=== PATIENT | male | born 1990 | race Caucasian/White ===

== ENCOUNTER 2018-03-15 00:56 | Emergency (ER) | payer OTHER, SELFPAY ==
[2018-03-15 01:07] VITALS: BP 120/60; PULSE 72; RESP 16; TEMP 36.8; O2SAT 100; BMI 26.6
--- NOTE | 2018-03-15 01:54 | ED_ITS ---
HPI - Extremity Problem General Chief complaint: Extremity Problem,Nontraumatic Stated complaint: left second toe swelling, feels on fire Time Seen by Provider: 03/15/18 01:12 Source: patient Mode of arrival: ambulatory Limitations: no limitations History of Present Illness HPI Narrative: 27-year-old otherwise healthy male here for evaluation of left 2nd toe pain. Patient states that he has been painful for the past 5 days. He states that he was in [place] and potentially stepped on something while he was walking through the grass but does not know this for sure. States he is in here this evening because he thought that he has toe was becoming more ?swollen ? and was ?on fire ? Related Data Previous Rx's Medication Instructions Recorded cephalexin [Keflex] 500 mg PO Q12H 7 Days #14 cap 03/15/18 Allergies Allergy/AdvReac Type Severity Reaction Status Date / Time Penicillins [PENICILLINS] Allergy Unknown Unverified 01/23/18 12:43 Review of Systems Constitutional Denies chills, Denies fever(s), Denies lethargy and Denies weakness Musculoskeletal Comments: Left 2nd toe pain Integumentary/Breasts Comments: White area on the bottom of his left 2nd toe Neurologic Denies weakness Comments: No numbness and tingling left ft Hematologic/Lymphatic Denies easy bruising Exam Initial Vital Signs Initial Vital Signs: Vital Signs Temperature 98.2 F 03/15/18 01:07 Pulse Rate 72 03/15/18 01:07 Respiratory Rate 16 03/15/18 01:07 Blood Pressure 120/60 03/15/18 01:07 Pulse Oximetry 100 03/15/18 01:07 Const General: cooperative and well developed Nutritional Appearance: well nourished Orientation: alert, awake, oriented x3 and not confused Cardio Pulses: dorsalis pedis present on the left Other: Capillary refill less than 2 sec left foot Skin Other: Patient with some redness around his left 2nd toe and has a half a cm small white area on the bottom of his 2nd toe under the PIP joint Neuro Other: Sensation intact to light touch left foot Extrem Other: Left ankle unremarkable Left foot unremarkable Does have slight swelling to the left 2nd toe Procedures Abscess I/D Site: foot Side (if applicable): left Sedation/analgesia: none Local Anesthetic: lidocaine 1% Amount of anesthesia used (mL): 2 Amount of fluid expressed (mL): 0 Packing used?: none Course Orders Ordered: Discontinued Medications Cephalexin HCl (Keflex) 500 mg PO NOW ONE Stop: 03/15/18 01:53 Vital Signs - 8 hr 03/15/18 01:07 Temperature 98.2 F Pulse Rate 72 Respiratory Rate 16 Blood Pressure 120/60 Pulse Oximetry 100 MDM - Extremity (Nontraumatic) [facility] Narrative Medical decision making narrative: Patient with swelling and a very small area of white material under his left 2nd toe. After the area was numbed a small incision was made with only very small amount of material returned. No foreign body was found. Patient was given care instructions. Will send home on Keflex. He is given return precautions. He expressed understanding and agreement with plan Discharge Plan Departure Patient Disposition: Home, Self-Care Clinical Impression: Infection of toe Activity Restrictions/Additional Instructions: Keep a bandage over the toe. You have no restrictions. He can shower like normal but do not soak her foot and anything. Take the antibiotics as directed. Return to the emergency department for any new or worsening symptoms Prescriptions: New cephalexin [Keflex] 500 mg capsule 500 mg PO Q12H 7 Days Qty: 14 RF: 0
[2018-03-15] MEDS: cephALEXin 250 MG CAPSULE 500 MG PO (02:17)
[2018-03-15 02:29] VITALS: BP 122/70; PULSE 68; RESP 18; O2SAT 100
== END 2018-03-15 02:30 | disposition home or self-care (01) ==
PROVIDERS: Emergency Provider Emergency Medicine
DX: L03.032 Cellulitis of left toe (principal); W26.8XXA Contact with other sharp object(s), not elsewhere classified, initial encounter
CPT/HCPCS: 99283

== ENCOUNTER 2018-09-22 11:25 | Emergency (ER) | payer OTHER, SELFPAY ==
[2018-09-22 11:30] VITALS: BP 123/72; PULSE 84; RESP 12; TEMP 36.9; O2SAT 100; BMI 24.4
--- NOTE | 2018-09-22 12:16 | ED.URI ---
HPI - URI/Sore Throat <ANNABELLE Patel - Last Filed: 09/22/18 12:22> General Chief Complaint: Upper Respiratory Symptoms Stated Complaint: sore throat,diff swallowing,white tongue Time Seen by Provider: 09/22/18 12:02 Source: patient and family Mode of arrival: ambulatory Limitations: no limitations History of Present Illness HPI Narrative: Patient is a 28-year-old male smoker who presents with chief complaint of sore throat. Started yesterday. Also complains of swollen lymph nodes, low-grade fevers. Denies any nausea vomiting or diarrhea chills or fatigue. Does complain of headache. Worried about strep throat. Denies chest pain, ear pain, cough, shortness of breath. Related Data Previous Rx's Medication Instructions Recorded azithromycin See Label Instructions .ROUTE 09/22/18 .COMPLEX #6 tab Allergies Allergy/AdvReac Type Severity Reaction Status Date / Time Penicillins [PENICILLINS] Allergy Unknown Verified 09/22/18 11:44 Review of Systems <ANNABELLE Patel - Last Filed: 09/22/18 12:22> Review of Systems GENERAL: See HPI HEENT: see HPI RESPIRATORY: Denies dyspnea, cough, wheezing, hemoptysis, sputum. CARDIOVASCULAR: Denies chest pain, palpitations, orthopnea, edema, GASTROINTESTINAL: Denies nausea, vomiting, abdominal pain, diarrhea, constipation, melena. : Denies dysuria, frequency, incontinence, hematuria, urinary retention. MUSCULOSKELETAL: denies weakness, joint pain, or bony pain SKIN: Denies rash, skin lesions, or other NEUROLOGIC: Denies weakness, headache, numbness, change in speech, confusion, seizures, incoordination. PSYCHIATRIC: No concerning psychosocial issues. 12 point review of systems is negative except for those stated above Exam <CHELITA Patel - Last Filed: 09/22/18 12:22> Narrative Exam Narrative: GENERAL: This is a well-nourished, well-developed patient, in mild distress. HEAD: Atraumatic. Normocephalic. No temporal or scalp tenderness. EYES: Pupils equal round and reactive. Extraocular motions intact. No scleral icterus. No injection or drainage. ENT: Nose without bleeding, purulent drainage or septal hematoma. Throat with erythema, petechiae, exudate noted. Uvula midline. Airway patent. Bilateral TMs pearly torres. NECK: Trachea midline. No JVD. Anterior bilaterallymphadenopathy. Supple, nontender, no meningeal signs. CARDIOVASCULAR: Regular rate and rhythm without murmurs, gallops, or rubs. RESPIRATORY: Clear to auscultation. Breath sounds equal bilaterally. No wheezes, rales, or rhonchi. GASTROINTESTINAL: Abdomen soft, non-tender, nondistended. No hepato-splenomegaly, or palpable masses. No guarding. EXTREMITIES: No clubbing, cyanosis, or edema. No joint tenderness, effusion, or edema noted. BACK: Nontender without deformity or crepitance. No flank tenderness. NEURO: AOx3. SKIN: No rash or erythema. Initial Vital Signs Initial Vital Signs: Vital Signs Temperature 98.4 F 09/22/18 11:30 Pulse Rate 84 09/22/18 11:30 Respiratory Rate 12 09/22/18 11:30 Blood Pressure 123/72 09/22/18 11:30 Pulse Oximetry 100 09/22/18 11:30 <Any Hines DO - Last Filed: 09/22/18 19:03> Initial Vital Signs Initial Vital Signs: Vital Signs Temperature 98.4 F 09/22/18 11:30 Pulse Rate 84 09/22/18 11:30 Respiratory Rate 12 09/22/18 11:30 Blood Pressure 123/72 09/22/18 11:30 Pulse Oximetry 100 09/22/18 11:30 Course <ANNABELLE Patel - Last Filed: 09/22/18 12:22> Vital Signs - 8 hr 09/22/18 11:30 Temperature 98.4 F Pulse Rate 84 Respiratory Rate 12 Blood Pressure 123/72 Pulse Oximetry 100 <Any Hines DO - Last Filed: 09/22/18 19:03> Vital Signs - 8 hr 09/22/18 11:30 Temperature 98.4 F Pulse Rate 84 Respiratory Rate 12 Blood Pressure 123/72 Pulse Oximetry 100 MDM - URI/Sore Throat <ANNABELLE Patel - Last Filed: 09/22/18 12:22> Lab Data Point of Care Testing Rapid Strep A Positive MDM Narrative Medical decision making narrative: patient is a 28-year-old male the penicillin allergy presents with chief complaint of sore throat. He had a positive rapid strep. Given his allergy to penicillin, I will treat him with azithromycin. Discussed at length return precautions and follow-up if worsening or no improvement. Patient no questions or concerns upon discharge. <Any Hines DO - Last Filed: 09/22/18 19:03> Lab Data Point of Care Testing Rapid Strep A Positive Discharge Plan Departure Patient Disposition: Home Clinical Impression: Strep throat Discharge Date/Time: 09/22/18 12:29 Interventions: ED Discharge Assessment Last Done: 09/22/18 12:28 Instructions: DI for Strep Throat Activity Restrictions/Additional Instructions: I am starting on an antibiotic for strep throat. Please continue [id number] care for comfort and fever. Please follow-up with primary care provider for worsening or no improvement. come back to the emergency department if needed. Prescriptions: New azithromycin 250 mg tablet See Label Instructions .ROUTE .COMPLEX Qty: 6 RF: 0 Referrals: [facility] [place] [Outside] <Any Hines DO - Last Filed: 09/22/18 19:03> Cosign ED Attending Cosnatanaelature Attestation: I was immediately available in the department for consultation. Documentation has been reviewed. I agree with assessment and plan.
--- NOTE | 2018-09-22 12:19 | ED_ITS ---
HPI - URI/Sore Throat <ANNABELLE Patel - Last Filed: 09/22/18 12:22> General Chief Complaint: Upper Respiratory Symptoms Stated Complaint: sore throat,diff swallowing,white tongue Time Seen by Provider: 09/22/18 12:02 Source: patient and family Mode of arrival: ambulatory Limitations: no limitations History of Present Illness HPI Narrative: Patient is a 28-year-old male smoker who presents with chief complaint of sore throat. Started yesterday. Also complains of swollen lymph nodes, low-grade fevers. Denies any nausea vomiting or diarrhea chills or fatigue. Does complain of headache. Worried about strep throat. Denies chest pain, ear pain, cough, shortness of breath. Related Data Previous Rx's Medication Instructions Recorded azithromycin See Label Instructions .ROUTE 09/22/18 .COMPLEX #6 tab Allergies Allergy/AdvReac Type Severity Reaction Status Date / Time Penicillins [PENICILLINS] Allergy Unknown Verified 09/22/18 11:44 Review of Systems <ANNABELLE Patel - Last Filed: 09/22/18 12:22> Review of Systems GENERAL: See HPI HEENT: see HPI RESPIRATORY: Denies dyspnea, cough, wheezing, hemoptysis, sputum. CARDIOVASCULAR: Denies chest pain, palpitations, orthopnea, edema, GASTROINTESTINAL: Denies nausea, vomiting, abdominal pain, diarrhea, constipation, melena. : Denies dysuria, frequency, incontinence, hematuria, urinary retention. MUSCULOSKELETAL: denies weakness, joint pain, or bony pain SKIN: Denies rash, skin lesions, or other NEUROLOGIC: Denies weakness, headache, numbness, change in speech, confusion, seizures, incoordination. PSYCHIATRIC: No concerning psychosocial issues. 12 point review of systems is negative except for those stated above Exam <CHELITA Patel - Last Filed: 09/22/18 12:22> Narrative Exam Narrative: GENERAL: This is a well-nourished, well-developed patient, in mild distress. HEAD: Atraumatic. Normocephalic. No temporal or scalp tenderness. EYES: Pupils equal round and reactive. Extraocular motions intact. No scleral icterus. No injection or drainage. ENT: Nose without bleeding, purulent drainage or septal hematoma. Throat with erythema, petechiae, exudate noted. Uvula midline. Airway patent. Bilateral TMs pearly torres. NECK: Trachea midline. No JVD. Anterior bilaterallymphadenopathy. Supple, nontender, no meningeal signs. CARDIOVASCULAR: Regular rate and rhythm without murmurs, gallops, or rubs. RESPIRATORY: Clear to auscultation. Breath sounds equal bilaterally. No wheezes , rales, or rhonchi. GASTROINTESTINAL: Abdomen soft, non-tender, nondistended. No hepato-splenomegaly , or palpable masses. No guarding. EXTREMITIES: No clubbing, cyanosis, or edema. No joint tenderness, effusion, or edema noted. BACK: Nontender without deformity or crepitance. No flank tenderness. NEURO: AOx3. SKIN: No rash or erythema. Initial Vital Signs Initial Vital Signs: Vital Signs Temperature 98.4 F 09/22/18 11:30 Pulse Rate 84 09/22/18 11:30 Respiratory Rate 12 09/22/18 11:30 Blood Pressure 123/72 09/22/18 11:30 Pulse Oximetry 100 09/22/18 11:30 <Any Hines DO - Last Filed: 09/22/18 19:03> Initial Vital Signs Initial Vital Signs: Vital Signs Temperature 98.4 F 09/22/18 11:30 Pulse Rate 84 09/22/18 11:30 Respiratory Rate 12 09/22/18 11:30 Blood Pressure 123/72 09/22/18 11:30 Pulse Oximetry 100 09/22/18 11:30 Course <ANNABELLE Patel - Last Filed: 09/22/18 12:22> Vital Signs - 8 hr 09/22/18 11:30 Temperature 98.4 F Pulse Rate 84 Respiratory Rate 12 Blood Pressure 123/72 Pulse Oximetry 100 <Any Hines DO - Last Filed: 09/22/18 19:03> Vital Signs - 8 hr 09/22/18 11:30 Temperature 98.4 F Pulse Rate 84 Respiratory Rate 12 Blood Pressure 123/72 Pulse Oximetry 100 MDM - URI/Sore Throat <ANNABELLE Patel - Last Filed: 09/22/18 12:22> Lab Data Point of Care Testing Rapid Strep A Positive MDM Narrative Medical decision making narrative: patient is a 28-year-old male the penicillin allergy presents with chief complaint of sore throat. He had a positive rapid strep. Given his allergy to penicillin, I will treat him with azithromycin. Discussed at length return precautions and follow-up if worsening or no improvement. Patient no questions or concerns upon discharge. <Any Hines DO - Last Filed: 09/22/18 19:03> Lab Data Point of Care Testing Rapid Strep A Positive Discharge Plan Departure Patient Disposition: Home Clinical Impression: Strep throat Discharge Date/Time: 09/22/18 12:29 Interventions: ED Discharge Assessment Last Done: 09/22/18 12:28 Instructions: DI for Strep Throat Activity Restrictions/Additional Instructions: I am starting on an antibiotic for strep throat. Please continue over-the- counter care for comfort and fever. Please follow-up with primary care provider for worsening or no improvement. come back to the emergency department if needed. Prescriptions: New azithromycin 250 mg tablet See Label Instructions .ROUTE .COMPLEX Qty: 6 RF: 0 Referrals: [facility] [Outside] <Any Hines DO - Last Filed: 09/22/18 19:03> Cosign ED Attending Cosnatanaelature Attestation: I was immediately available in the department for consultation. Documentation has been reviewed. I agree with assessment and plan.
== END 2018-09-22 12:29 | disposition home or self-care (01) ==
PROVIDERS: Emergency Provider Nurse Practitioner Family
DX: J02.0 Streptococcal pharyngitis (principal)
CPT/HCPCS: 87880; 99282; 99283

== ENCOUNTER 2018-10-07 22:09 | Emergency (ER) | payer OTHER, SELFPAY ==
[2018-10-07 22:17] VITALS: BP 117/63; PULSE 67; RESP 18; TEMP 36.9; O2SAT 100; BMI 27.1
--- NOTE | 2018-10-07 22:37 | PC.NURSE ---
Pt was using a potato slicer and sliced off some of the end of his left middle finger and finger nail. There is no loose skin or anything to stitch. pt came to er for bleeding controll. He states he had it stopped then changed bandage and the bleeding started again.
--- NOTE | 2018-10-07 22:39 | PC.NURSE ---
Positive CMS in left middle finger
--- NOTE | 2018-10-07 23:16 | ED.WOUNDLAC ---
HPI - Wound/Laceration General Chief Complaint: Wound/Laceration Stated Complaint: laceration to middle finger of right hand Time Seen by Provider: 10/07/18 23:08 Source: patient and family () Mode of arrival: ambulatory Limitations: no limitations History of Present Illness HPI narrative: This is a 28-year-old male who was using a mandoline or slicer to slice potatoes into thin layers. Patient caught the distal tip of his finger and took off the skin and a small portion of the distal nail. Patient states that it would not stop bleeding this happened around noon today, they removed the bandage it was still bleeding. Patient states his tetanus was up-to-date in the last year. He denies any other medical problems, he states some mild pain but no other issues. Related Data Home Medications Medication Instructions Recorded Confirmed azithromycin 10/07/18 Previous Rx's Medication Instructions Recorded azithromycin See Label Instructions .ROUTE 09/22/18 .COMPLEX #6 tab Allergies Allergy/AdvReac Type Severity Reaction Status Date / Time Penicillins [PENICILLINS] Allergy Unknown Verified 10/07/18 22:48 Review of Systems Musculoskeletal Reports as per HPI, Denies numbness and Denies tingling Neurologic Denies numbness and Denies tingling PFSH Social History Smoking Status: Current every day smoker Exam Narrative Exam Narrative: GENERAL: Alert and oriented x three, well-nourished, well-appearing male in mild distress. HEENT: Head normocephalic, atraumatic, EOMI, pupils reactive, face symmetric, moist mucous membranes EXTREMITIES: Normal range of motion, no clubbing or edema. Neurovascularly intact. Patient's 3rd finger on his left hand has an avulsion injury involving a small portion of the nail. It is slightly into the subcutaneous. There is no bony exposure. Gel-Foam was applied by nursing and bleeding has stopped. NEUROLOGICAL: Cranial nerves II through XII grossly intact. Moving all extremities SKIN: Warm, dry, no petechiae, no rashes. Initial Vital Signs Initial Vital Signs: Vital Signs Temperature 98.5 F 10/07/18 22:17 Pulse Rate 67 10/07/18 22:17 Respiratory Rate 18 10/07/18 22:17 Blood Pressure 117/63 10/07/18 22:17 Pulse Oximetry 100 10/07/18 22:17 Course Vital Signs - 8 hr 10/07/18 22:17 Temperature 98.5 F Pulse Rate 67 Respiratory Rate 18 Blood Pressure 117/63 Pulse Oximetry 100 Discharge Plan Departure Patient Disposition: Home Clinical Impression: Avulsion of fingertip Discharge Date/Time: 10/07/18 23:29 Interventions: ED Discharge Assessment Last Done: 10/07/18 23:30 Instructions: DI for Avulsion Laceration (Not Requiring Sutures) Activity Restrictions/Additional Instructions: Wound Care: Keep wound(s) clean and dry. Wash twice daily with soap and water only. Do not use over the counter products (alcohol or peroxide)on the wounds unless instructed by a physician. You may use triple antibiotic ointment. If wound condition worsens (increased/expanding redness, developing fluid blisters, or worsening pain), either contact your doctor for an urgent re-assessment , or return to the Emergency Department. Return to the Emergency Department for any new or worsening symptoms. Return if fever greater than 100.4 Fahrenheit, increased swelling, increasing pain or worsening symptoms such as increased discharge or spreading redness. Use warm compresses 3 times daily for 20 minutes to the affected area. If there is packing in place do not pull it out, if it falls out do not try to replace it. Prescriptions: No Action azithromycin 250 mg tablet See Label Instructions .ROUTE .COMPLEX Qty: 6 RF: 0 azithromycin 250 mg tablet RF: 0
--- NOTE | 2018-10-07 23:19 | ED_ITS ---
HPI - Wound/Laceration General Chief Complaint: Wound/Laceration Stated Complaint: laceration to middle finger of right hand Time Seen by Provider: 10/07/18 23:08 Source: patient and family () Mode of arrival: ambulatory Limitations: no limitations History of Present Illness HPI narrative: This is a 28-year-old male who was using a mandoline or slicer to slice potatoes into thin layers. Patient caught the distal tip of his finger and took off the skin and a small portion of the distal nail. Patient states that it would not stop bleeding this happened around noon today, they removed the bandage it was still bleeding. Patient states his tetanus was up-to -date in the last year. He denies any other medical problems, he states some mild pain but no other issues. Related Data Home Medications Medication Instructions Recorded Confirmed azithromycin 10/07/18 Previous Rx's Medication Instructions Recorded azithromycin See Label Instructions .ROUTE 09/22/18 .COMPLEX #6 tab Allergies Allergy/AdvReac Type Severity Reaction Status Date / Time Penicillins [PENICILLINS] Allergy Unknown Verified 10/07/18 22:48 Review of Systems Musculoskeletal Reports as per HPI, Denies numbness and Denies tingling Neurologic Denies numbness and Denies tingling PFSH Social History Smoking Status: Current every day smoker Exam Narrative Exam Narrative: GENERAL: Alert and oriented x three, well-nourished, well- appearing male in mild distress. HEENT: Head normocephalic, atraumatic, EOMI, pupils reactive, face symmetric, moist mucous membranes EXTREMITIES: Normal range of motion, no clubbing or edema. Neurovascularly intact. Patient's 3rd finger on his left hand has an avulsion injury involving a small portion of the nail. It is slightly into the subcutaneous. There is no bony exposure. Gel-Foam was applied by nursing and bleeding has stopped. NEUROLOGICAL: Cranial nerves II through XII grossly intact. Moving all extremities SKIN: Warm, dry, no petechiae, no rashes. Initial Vital Signs Initial Vital Signs: Vital Signs Temperature 98.5 F 10/07/18 22:17 Pulse Rate 67 10/07/18 22:17 Respiratory Rate 18 10/07/18 22:17 Blood Pressure 117/63 10/07/18 22:17 Pulse Oximetry 100 10/07/18 22:17 Course Vital Signs - 8 hr 10/07/18 22:17 Temperature 98.5 F Pulse Rate 67 Respiratory Rate 18 Blood Pressure 117/63 Pulse Oximetry 100 Discharge Plan Departure Patient Disposition: Home Clinical Impression: Avulsion of fingertip Discharge Date/Time: 10/07/18 23:29 Interventions: ED Discharge Assessment Last Done: 10/07/18 23:30 Instructions: DI for Avulsion Laceration (Not Requiring Sutures) Activity Restrictions/Additional Instructions: Wound Care: Keep wound(s) clean and dry. Wash twice daily with soap and water only. Do not use over the counter products (alcohol or peroxide)on the wounds unless instructed by a physician. You may use triple antibiotic ointment. If wound condition worsens (increased/expanding redness, developing fluid blisters, or worsening pain), either contact your doctor for an urgent re- assessment , or return to the Emergency Department. Return to the Emergency Department for any new or worsening symptoms. Return if fever greater than 100.4 Fahrenheit, increased swelling, increasing pain or worsening symptoms such as increased discharge or spreading redness. Use warm compresses 3 times daily for 20 minutes to the affected area. If there is packing in place do not pull it out, if it falls out do not try to replace it. Prescriptions: No Action azithromycin 250 mg tablet See Label Instructions .ROUTE .COMPLEX Qty: 6 RF: 0 azithromycin 250 mg tablet RF: 0
== END 2018-10-07 23:29 | disposition home or self-care (01) ==
PROVIDERS: Emergency Provider Emergency Medicine
DX: S61.209A Unspecified open wound of unspecified finger without damage to nail, initial encounter (principal); W26.8XXA Contact with other sharp object(s), not elsewhere classified, initial encounter
CPT/HCPCS: 99282; 99283

== ENCOUNTER 2019-05-28 15:35 | Emergency (ER) | payer OTHER, SELFPAY ==
[2019-05-28 15:58] VITALS: BP 123/82; PULSE 108; RESP 18; TEMP 37; O2SAT 97; BMI 25.7
--- NOTE | 2019-05-28 19:44 | DI.RAD.S_ITS ---
PROCEDURE: XR THORACIC SPINE 2V INDICATIONS: back pain TECHNIQUE: 2 views of the thoracic spine were acquired. COMPARISON: None. FINDINGS: Bones: No fractures or dislocations. No suspicious bony lesions. 12 pairs of ribs are noted, and appear intact where visualized. Soft tissues: No paravertebral stripe thickening. IMPRESSION: No fracture. No acute osseous lesion. If symptoms and/or clinical suspicion for pathology persists, evaluation with MRI may be helpful for further assessment. Dictated by: Mariah Pimentel MD, PhD on 05/28/2019 at 20:13 Approved by: Mariah Pimentel MD, PhD on 05/28/2019 at 20:13
--- NOTE | 2019-05-28 19:44 | DI.RAD.S_ITS ---
PROCEDURE: XR LUMBAR SPINE 2-3V INDICATIONS: back pain TECHNIQUE: 3 views of the lumbar spine were acquired. COMPARISON: None. FINDINGS: Bones: 5 [id number] vertebrae are present. There is normal bony alignment. No vertebral body compression fractures. No suspicious bony lesions. Soft tissues: Overlying bowel gas pattern is normal. No suspicious soft tissue calcifications. IMPRESSION: No fracture. No acute osseous lesion. If symptoms and/or clinical suspicion for pathology persists, evaluation with MRI may be helpful for further assessment. Dictated by: Mariah Pimentel MD, PhD on 05/28/2019 at 20:12 Approved by: Mariah Pimentel MD, PhD on 05/28/2019 at 20:13
[2019-05-28] MEDS: CYCLOBENZAPRINE 10 MG TABLET PO (20:06)
[2019-05-28] MEDS: KETOROLAC 60 MG/2 ML VIAL IM (20:08)
[2019-05-28 20:11] VITALS: BP 123/77; PULSE 56; RESP 14; O2SAT 98
[2019-05-28 20:59] VITALS: BP 117/64; PULSE 54; RESP 16; O2SAT 97
[2019-05-28 21:00] VITALS: BP 114/69; PULSE 65; O2SAT 100
--- NOTE | 2019-05-28 21:07 | ED.BACK ---
HPI - Back Pain/Injury <CHELITA Patel - Last Filed: 05/28/19 21:13> General Chief Complaint: Back Pain/Injury Stated Complaint: states tweaked back on ,getting stiffer Time Seen by Provider: 05/28/19 19:36 Source: patient and family Mode of arrival: ambulatory Limitations: no limitations History of Present Illness HPI Narrative: The patient is a 28 year male current smoker with a history of strep throat who presents with a chief complaint of back pain. He states he was lifting weights on Sunday, and felt and heard a pop in his back. Denies any incontinence of bowel, incontinence of bladder saddle anesthesia. Denies any numbness tingling or weakness anywhere. He tried a course of ice and ibuprofen without much improvement. He states it is worse with movement. Related Data Home Medications Medication Instructions Recorded Confirmed azithromycin 10/07/18 Previous Rx's Medication Instructions Recorded azithromycin See Rx Instructions .ROUTE 09/22/18 .COMPLEX #6 tab cyclobenzaprine 10 mg PO TID PRN #30 tab 05/28/19 ketorolac 10 mg PO TID PRN #20 tab 05/28/19 Allergies Allergy/AdvReac Type Severity Reaction Status Date / Time Penicillins [PENICILLINS] Allergy Unknown Verified 10/07/18 22:48 Review of Systems <CHELITA Patel - Last Filed: 05/28/19 21:13> Review of Systems GENERAL: Denies chills, fatigue, malaise, fever, sweats. HEENT: Denies sinus pain, ear pain, sore throat, difficulty swallowing, dizziness. RESPIRATORY: Denies dyspnea, cough, wheezing, hemoptysis, sputum. CARDIOVASCULAR: Denies chest pain, palpitations, orthopnea, edema, GASTROINTESTINAL: Denies nausea, vomiting, abdominal pain, diarrhea, constipation, melena. : Denies dysuria, frequency, incontinence, hematuria, urinary retention. MUSCULOSKELETAL: See HPI SKIN: Denies rash, skin lesions, or other NEUROLOGIC: Denies weakness, headache, numbness, change in speech, confusion, seizures, incoordination. PSYCHIATRIC: No concerning psychosocial issues. 12 point review of systems is negative except for those stated above PFSH <CHELITA Patel - Last Filed: 05/28/19 21:13> Social History Smoking Status: Current every day smoker Social History Smoking Status: Current every day smoker Exam <ANNABELLE Patel - Last Filed: 05/28/19 21:13> Narrative Exam Narrative: GENERAL: This is a well-nourished, well-developed patient, in mild distress. HEAD: Atraumatic. Normocephalic. No temporal or scalp tenderness. EYES: Pupils equal round and reactive. Extraocular motions intact. No scleral icterus. No injection or drainage. ENT: Nose without bleeding, purulent drainage or septal hematoma. Throat without erythema, tonsillar hypertrophy or exudate. Uvula midline. Airway patent. NECK: Trachea midline. No JVD or lymphadenopathy. Supple, nontender, no meningeal signs. CARDIOVASCULAR: Regular rate and rhythm RESPIRATORY: Clear to auscultation. Breath sounds equal bilaterally. No wheezes, rales, or rhonchi. No cough. No increased respiratory effort. No accessory muscle use. GASTROINTESTINAL: Abdomen soft, non-tender, nondistended. No hepato-splenomegaly, or palpable masses. No guarding. EXTREMITIES: No clubbing, cyanosis, or edema. No joint tenderness, effusion, or edema noted. BACK: No pain to C-spine palpation. Pain to T and L-spine palpation. Pain to bilateral paraspinal muscle palpation. NEURO: AOx3. Clear speech. Strength is equal upper and lower extremities bilaterally. No gross cranial nerve deficit. Stable gait. SKIN: No rash or erythema. No erythema ecchymosis rash contusion or abrasion noted on back. Initial Vital Signs Initial Vital Signs: Vital Signs Temperature 98.6 F 05/28/19 15:58 Pulse Rate 108 H 05/28/19 15:58 Respiratory Rate 18 05/28/19 15:58 Blood Pressure 123/82 05/28/19 15:58 Pulse Oximetry 97 05/28/19 15:58 <Scarlet Golden MD - Last Filed: 05/29/19 03:48> Initial Vital Signs Initial Vital Signs: Vital Signs Temperature 98.6 F 05/28/19 15:58 Pulse Rate 108 H 05/28/19 15:58 Respiratory Rate 18 05/28/19 15:58 Blood Pressure 123/82 05/28/19 15:58 Pulse Oximetry 97 05/28/19 15:58 Course <JIGNA Patel-BC - Last Filed: 05/28/19 21:13> Orders Ordered: ED Orders 05/28/19 19:44 XR lumbar spine 2-3V Stat XR thoracic spine 2V Stat Discontinued Medications Cyclobenzaprine HCl (Flexeril) 10 mg PO NOW ONE Stop: 05/28/19 19:45 Last Admin: 05/28/19 20:06 Dose: 10 mg Cyclobenzaprine HCl (Flexeril 10 Mg Prepack) 1 bottle MISC SEEINSTR ONE Stop: 05/28/19 20:50 Last Admin: 05/28/19 21:16 Dose: 1 bottle Ketorolac Tromethamine (Toradol) 60 mg IM NOW ONE Stop: 05/28/19 19:45 Last Admin: 05/28/19 20:08 Dose: 60 mg Tramadol HCl (Ultram 50mg Prepack) 1 bottle MISC SEEINSTR ONE Stop: 05/28/19 20:50 Last Admin: 05/28/19 21:16 Dose: 1 bottle Vital Signs - 8 hr 05/28/19 20:11 05/28/19 20:59 05/28/19 21:00 Temperature Pulse Rate 56 L 54 L 65 Respiratory Rate 14 16 Blood Pressure [Right Arm] 123/77 117/64 114/69 Pulse Oximetry 98 97 100 05/28/19 21:24 Temperature 97.9 F Pulse Rate 59 L Respiratory Rate 18 Blood Pressure [Right Arm] 131/67 Pulse Oximetry 98 <Scarlet Golden MD - Last Filed: 05/29/19 03:48> Orders Ordered: ED Orders 05/28/19 19:44 XR lumbar spine 2-3V Stat XR thoracic spine 2V Stat Discontinued Medications Cyclobenzaprine HCl (Flexeril) 10 mg PO NOW ONE Stop: 05/28/19 19:45 Last Admin: 05/28/19 20:06 Dose: 10 mg Cyclobenzaprine HCl (Flexeril 10 Mg Prepack) 1 bottle MISC SEEINSTR ONE Stop: 05/28/19 20:50 Last Admin: 05/28/19 21:16 Dose: 1 bottle Ketorolac Tromethamine (Toradol) 60 mg IM NOW ONE Stop: 05/28/19 19:45 Last Admin: 05/28/19 20:08 Dose: 60 mg Tramadol HCl (Ultram 50mg Prepack) 1 bottle MISC SEEINSTR ONE Stop: 05/28/19 20:50 Last Admin: 05/28/19 21:16 Dose: 1 bottle Vital Signs - 8 hr 05/28/19 20:11 05/28/19 20:59 05/28/19 21:00 Temperature Pulse Rate 56 L 54 L 65 Respiratory Rate 14 16 Blood Pressure [Right Arm] 123/77 117/64 114/69 Pulse Oximetry 98 97 100 05/28/19 21:24 Temperature 97.9 F Pulse Rate 59 L Respiratory Rate 18 Blood Pressure [Right Arm] 131/67 Pulse Oximetry 98 MDM - Back Pain/Injury <ANNABELLE Patel - Last Filed: 05/28/19 21:13> Lab Data Urine Dip Bedside Urine Glucose Negative Bedside Urine Bilirubin - Negative Bedside Urine Ketone - Negative Urine Specific [place] 1.015 Bedside Urine Occult Blood - Negative Bedside Urine pH 7.5 Bedside Urine Protein - Negative Bedside Urine Urobilinogen - Negative Bedside Urine Nitrite - Negative Bedside Urine Leukocytes - Negative Esterase Imaging Data L-spine x-ray: Radiologist's impression: [place] [address] XRay Report Signed Patient: Bakari Miguel R#: [id number] : 1990Acct:[id number] Age/Sex: 28 / MDate of Service: 05/28/19 Loc: ED Accession Number: [id number] Procedure: XR lumbar spine 2-3V Ordering Provider: Thu Perdue PROCEDURE: XR LUMBAR SPINE 2-3V INDICATIONS: back pain TECHNIQUE: 3 views of the lumbar spine were acquired. COMPARISON: None. FINDINGS: Bones: 5 [id number] vertebrae are present. There is normal bony alignment. No vertebral body compression fractures. No suspicious bony lesions. Soft tissues: Overlying bowel gas pattern is normal. No suspicious soft tissue calcifications. IMPRESSION: No fracture. No acute osseous lesion. If symptoms and/or clinical suspicion for pathology persists, evaluation with MRI may be helpful for further assessment. Dictated by: Mariah Pimentel MD, PhD on 05/28/2019 at 20:12 Approved by: Mariah Pimentel MD, PhD on 05/28/2019 at 20:13 T-spine x-ray: Radiologist's impression: [address] [address] XRay Report Signed Patient: Bakari Miguel HMR#: [id number] : 1990Acct:[id number] Age/Sex: 28 / MDate of Service: 05/28/19 Loc: ED Accession Number: [id number] Procedure: XR thoracic spine 2V Ordering Provider: Thu Perdue- PROCEDURE: XR THORACIC SPINE 2V INDICATIONS: back pain TECHNIQUE: 2 views of the thoracic spine were acquired. COMPARISON: None. FINDINGS: Bones: No fractures or dislocations. No suspicious bony lesions. 12 pairs of ribs are noted, and appear intact where visualized. Soft tissues: No paravertebral stripe thickening. IMPRESSION: No fracture. No acute osseous lesion. If symptoms and/or clinical suspicion for pathology persists, evaluation with MRI may be helpful for further assessment. Dictated by: Mariah Pimentel MD, PhD on 05/28/2019 at 20:13 Approved by: Mariah Pimentel MD, PhD on 05/28/2019 at 20:13 [facility] Narrative Medical decision making narrative: The patient is a 28-year-old male who presents with a chief complaint of back pain for the past 4 days after lifting weights. He has negative x-rays. He has no red flag symptoms of incontinence of bowel, incontinence of bladder or groin numbness. I discussed at length to come back to the ER for any acute concerns such as these. Patient states understanding. The patient felt much improvement from Toradol and Flexeril in the emergency department. I given take-home packs and prescriptions of Toradol, tramadol as well as Flexeril. I encouraged him to follow up with PCP and discussed coming back to the ER for any acute concerns such as incontinence of bowel, incontinence of bladder or saddle anesthesia. Patient has no questions or concerns and states understanding upon discharge. Ambulates steadily throughout his stay in the ER. <Scarlet Golden MD - Last Filed: 05/29/19 03:48> Lab Data Urine Dip Bedside Urine Glucose Negative Bedside Urine Bilirubin - Negative Bedside Urine Ketone - Negative Urine Specific [place] 1.015 Bedside Urine Occult Blood - Negative Bedside Urine pH 7.5 Bedside Urine Protein - Negative Bedside Urine Urobilinogen - Negative Bedside Urine Nitrite - Negative Bedside Urine Leukocytes - Negative Esterase Discharge Plan Departure Patient Disposition: Home Clinical Impression: Thoracic back pain Qualifiers: Chronicity: acute Back pain laterality: bilateral Qualified Code(s): M54.6 - Pain in thoracic spine Strain of lumbar region Qualifiers: Encounter type: initial encounter Qualified Code(s): S39.012A - Strain of muscle, fascia and tendon of lower back, initial encounter Discharge Date/Time: 05/28/19 21:26 Interventions: ED Discharge Assessment Last Done: 05/28/19 21:25 Instructions: DI for Low Back Pain, DI for Muscle Strain, DI for Back Spasm, DI for Back Strain or Sprain Activity Restrictions/Additional Instructions: Your x-rays of your spine came back well today. I have given you prescriptions of Toradol, which is an NSAID. Do not combine this with ibuprofen or Aleve or any other NSAIDs. I have given you a take home pack of tramadol. This can be constipating and sedating. I have also given you some cyclobenzaprine, which is a muscle relaxer. Monitor for incontinence of bowel, incontinence of bladder or groin numbness. These are signs of a spinal cord injury. Please come back to the emergency department if you have any of this or any acute concerns. Please follow up with primary care provider. Prescriptions: New cyclobenzaprine 10 mg tablet 10 mg PO TID PRN (Reason: muscle spasm) Qty: 30 RF: 0 ketorolac 10 mg tablet 10 mg PO TID PRN (Reason: pain) Qty: 20 RF: 0 No Action azithromycin 250 mg tablet See Rx Instructions .ROUTE .COMPLEX Qty: 6 RF: 0 azithromycin 250 mg tablet RF: 0
--- NOTE | 2019-05-28 21:14 | ED_ITS ---
HPI - Back Pain/Injury <CHELITA Patel - Last Filed: 05/28/19 21:13> General Chief Complaint: Back Pain/Injury Stated Complaint: states tweaked back on ,getting stiffer Time Seen by Provider: 05/28/19 19:36 Source: patient and family Mode of arrival: ambulatory Limitations: no limitations History of Present Illness HPI Narrative: The patient is a 28 year male current smoker with a history of strep throat who presents with a chief complaint of back pain. He states he was lifting weights on Sunday, and felt and heard a pop in his back. Denies any incontinence of bowel, incontinence of bladder saddle anesthesia. Denies any numbness tingling or weakness anywhere. He tried a course of ice and ibuprofen without much improvement. He states it is worse with movement. Related Data Home Medications Medication Instructions Recorded Confirmed azithromycin 10/07/18 Previous Rx's Medication Instructions Recorded azithromycin See Rx Instructions .ROUTE 09/22/18 .COMPLEX #6 tab cyclobenzaprine 10 mg PO TID PRN #30 tab 05/28/19 ketorolac 10 mg PO TID PRN #20 tab 05/28/19 Allergies Allergy/AdvReac Type Severity Reaction Status Date / Time Penicillins [PENICILLINS] Allergy Unknown Verified 10/07/18 22:48 Review of Systems <CHELITA Patel - Last Filed: 05/28/19 21:13> Review of Systems GENERAL: Denies chills, fatigue, malaise, fever, sweats. HEENT: Denies sinus pain, ear pain, sore throat, difficulty swallowing, dizziness. RESPIRATORY: Denies dyspnea, cough, wheezing, hemoptysis, sputum. CARDIOVASCULAR: Denies chest pain, palpitations, orthopnea, edema, GASTROINTESTINAL: Denies nausea, vomiting, abdominal pain, diarrhea, constipation, melena. : Denies dysuria, frequency, incontinence, hematuria, urinary retention. MUSCULOSKELETAL: See HPI SKIN: Denies rash, skin lesions, or other NEUROLOGIC: Denies weakness, headache, numbness, change in speech, confusion, seizures, incoordination. PSYCHIATRIC: No concerning psychosocial issues. 12 point review of systems is negative except for those stated above PFSH <CHELITA Patel - Last Filed: 05/28/19 21:13> Social History Smoking Status: Current every day smoker Social History Smoking Status: Current every day smoker Exam <ANNABELLE Patel - Last Filed: 05/28/19 21:13> Narrative Exam Narrative: GENERAL: This is a well-nourished, well-developed patient, in mild distress. HEAD: Atraumatic. Normocephalic. No temporal or scalp tenderness. EYES: Pupils equal round and reactive. Extraocular motions intact. No scleral icterus. No injection or drainage. ENT: Nose without bleeding, purulent drainage or septal hematoma. Throat without erythema, tonsillar hypertrophy or exudate. Uvula midline. Airway patent. NECK: Trachea midline. No JVD or lymphadenopathy. Supple, nontender, no meningeal signs. CARDIOVASCULAR: Regular rate and rhythm RESPIRATORY: Clear to auscultation. Breath sounds equal bilaterally. No wheezes, rales, or rhonchi. No cough. No increased respiratory effort. No accessory muscle use. GASTROINTESTINAL: Abdomen soft, non-tender, nondistended. No hepato- splenomegaly, or palpable masses. No guarding. EXTREMITIES: No clubbing, cyanosis, or edema. No joint tenderness, effusion, or edema noted. BACK: No pain to C-spine palpation. Pain to T and L-spine palpation. Pain to bilateral paraspinal muscle palpation. NEURO: AOx3. Clear speech. Strength is equal upper and lower extremities bilaterally. No gross cranial nerve deficit. Stable gait. SKIN: No rash or erythema. No erythema ecchymosis rash contusion or abrasion noted on back. Initial Vital Signs Initial Vital Signs: Vital Signs Temperature 98.6 F 05/28/19 15:58 Pulse Rate 108 H 05/28/19 15:58 Respiratory Rate 18 05/28/19 15:58 Blood Pressure 123/82 05/28/19 15:58 Pulse Oximetry 97 05/28/19 15:58 <Scarlet Golden MD - Last Filed: 05/29/19 03:48> Initial Vital Signs Initial Vital Signs: Vital Signs Temperature 98.6 F 05/28/19 15:58 Pulse Rate 108 H 05/28/19 15:58 Respiratory Rate 18 05/28/19 15:58 Blood Pressure 123/82 05/28/19 15:58 Pulse Oximetry 97 05/28/19 15:58 Course <JIGNA Patel-BC - Last Filed: 05/28/19 21:13> Orders Ordered: ED Orders 05/28/19 19:44 XR lumbar spine 2-3V Stat XR thoracic spine 2V Stat Discontinued Medications Cyclobenzaprine HCl (Flexeril) 10 mg PO NOW ONE Stop: 05/28/19 19:45 Last Admin: 05/28/19 20:06 Dose: 10 mg Cyclobenzaprine HCl (Flexeril 10 Mg Prepack) 1 bottle MISC SEEINSTR ONE Stop: 05/28/19 20:50 Last Admin: 05/28/19 21:16 Dose: 1 bottle Ketorolac Tromethamine (Toradol) 60 mg IM NOW ONE Stop: 05/28/19 19:45 Last Admin: 05/28/19 20:08 Dose: 60 mg Tramadol HCl (Ultram 50mg Prepack) 1 bottle MISC SEEINSTR ONE Stop: 05/28/19 20:50 Last Admin: 05/28/19 21:16 Dose: 1 bottle Vital Signs - 8 hr 05/28/19 20:11 05/28/19 20:59 05/28/19 21:00 Temperature Pulse Rate 56 L 54 L 65 Respiratory Rate 14 16 Blood Pressure [Right Arm] 123/77 117/64 114/69 Pulse Oximetry 98 97 100 05/28/19 21:24 Temperature 97.9 F Pulse Rate 59 L Respiratory Rate 18 Blood Pressure [Right Arm] 131/67 Pulse Oximetry 98 <Scarlet Golden MD - Last Filed: 05/29/19 03:48> Orders Ordered: ED Orders 05/28/19 19:44 XR lumbar spine 2-3V Stat XR thoracic spine 2V Stat Discontinued Medications Cyclobenzaprine HCl (Flexeril) 10 mg PO NOW ONE Stop: 05/28/19 19:45 Last Admin: 05/28/19 20:06 Dose: 10 mg Cyclobenzaprine HCl (Flexeril 10 Mg Prepack) 1 bottle MISC SEEINSTR ONE Stop: 05/28/19 20:50 Last Admin: 05/28/19 21:16 Dose: 1 bottle Ketorolac Tromethamine (Toradol) 60 mg IM NOW ONE Stop: 05/28/19 19:45 Last Admin: 05/28/19 20:08 Dose: 60 mg Tramadol HCl (Ultram 50mg Prepack) 1 bottle MISC SEEINSTR ONE Stop: 05/28/19 20:50 Last Admin: 05/28/19 21:16 Dose: 1 bottle Vital Signs - 8 hr 05/28/19 20:11 05/28/19 20:59 05/28/19 21:00 Temperature Pulse Rate 56 L 54 L 65 Respiratory Rate 14 16 Blood Pressure [Right Arm] 123/77 117/64 114/69 Pulse Oximetry 98 97 100 05/28/19 21:24 Temperature 97.9 F Pulse Rate 59 L Respiratory Rate 18 Blood Pressure [Right Arm] 131/67 Pulse Oximetry 98 MDM - Back Pain/Injury <ANNABELLE Patel - Last Filed: 05/28/19 21:13> Lab Data Urine Dip Bedside Urine Glucose Negative Bedside Urine Bilirubin - Negative Bedside Urine Ketone - Negative Urine Specific [place] 1.015 Bedside Urine Occult Blood - Negative Bedside Urine pH 7.5 Bedside Urine Protein - Negative Bedside Urine Urobilinogen - Negative Bedside Urine Nitrite - Negative Bedside Urine Leukocytes - Negative Esterase Imaging Data L-spine x-ray: Radiologist's impression: [place] [address] XRay Report Signed Patient: Bakari Miguel R#: [id number] : 1990Acct:[id number] Age/Sex: 28 / MDate of Service: 05/28/19 Loc: ED Accession Number: [id number] Procedure: XR lumbar spine 2-3V Ordering Provider: Thu Perdue PROCEDURE: XR LUMBAR SPINE 2-3V INDICATIONS: back pain TECHNIQUE: 3 views of the lumbar spine were acquired. COMPARISON: None. FINDINGS: Bones: 5 [id number] vertebrae are present. There is normal bony alignment. No vertebral body compression fractures. No suspicious bony lesions. Soft tissues: Overlying bowel gas pattern is normal. No suspicious soft tissue calcifications. IMPRESSION: No fracture. No acute osseous lesion. If symptoms and/or clinical suspicion for pathology persists, evaluation with MRI may be helpful for further assessment. Dictated by: Mariah Pimentel MD, PhD on 05/28/2019 at 20:12 Approved by: Mariah Pimentel MD, PhD on 05/28/2019 at 20:13 T-spine x-ray: Radiologist's impression: [address] [address] XRay Report Signed Patient: Bakari Miguel HMR#: [id number] : 1990Acct:[id number] Age/Sex: 28 / MDate of Service: 05/28/19 Loc: ED Accession Number: [id number] Procedure: XR thoracic spine 2V Ordering Provider: Thu Perdue- PROCEDURE: XR THORACIC SPINE 2V INDICATIONS: back pain TECHNIQUE: 2 views of the thoracic spine were acquired. COMPARISON: None. FINDINGS: Bones: No fractures or dislocations. No suspicious bony lesions. 12 pairs of ribs are noted, and appear intact where visualized. Soft tissues: No paravertebral stripe thickening. IMPRESSION: No fracture. No acute osseous lesion. If symptoms and/or clinical suspicion for pathology persists, evaluation with MRI may be helpful for further assessment. Dictated by: Mariah Pimentel MD, PhD on 05/28/2019 at 20:13 Approved by: Mariah Pimentel MD, PhD on 05/28/2019 at 20:13 [facility] Narrative Medical decision making narrative: The patient is a 28-year-old male who prese nts with a chief complaint of back pain for the past 4 days after lifting weights. He has negative x-rays. He has no red flag symptoms of incontinence of bowel, incontinence of bladder or groin numbness. I discussed at length to come back to the ER for any acute concerns such as these. Patient states understanding. The patient felt much improvement from Toradol and Flexeril in the emergency department. I given take-home packs and prescriptions of Toradol, tramadol as well as Flexeril. I encouraged him to follow up with PCP and discussed coming back to the ER for any acute concerns such as incontinence of bowel, incontinence of bladder or saddle anesthesia. Patient has no questions or concerns and states understanding upon discharge. Ambulates steadily throughout his stay in the ER. <Scarlet Golden MD - Last Filed: 05/29/19 03:48> Lab Data Urine Dip Bedside Urine Glucose Negative Bedside Urine Bilirubin - Negative Bedside Urine Ketone - Negative Urine Specific [place] 1.015 Bedside Urine Occult Blood - Negative Bedside Urine pH 7.5 Bedside Urine Protein - Negative Bedside Urine Urobilinogen - Negative Bedside Urine Nitrite - Negative Bedside Urine Leukocytes - Negative Esterase Discharge Plan Departure Patient Disposition: Home Clinical Impression: Thoracic back pain Qualifiers: Chronicity: acute Back pain laterality: bilateral Qualified Code(s): M54.6 - Pain in thoracic spine Strain of lumbar region Qualifiers: Encounter type: initial encounter Qualified Code(s): S39.012A - Strain of muscle, fascia and tendon of lower back, initial encounter Discharge Date/Time: 05/28/19 21:26 Interventions: ED Discharge Assessment Last Done: 05/28/19 21:25 Instructions: DI for Low Back Pain, DI for Muscle Strain, DI for Back Spasm, DI for Back Strain or Sprain Activity Restrictions/Additional Instructions: Your x-rays of your spine came back well today. I have given you prescriptions of Toradol, which is an NSAID. Do not combine this with ibuprofen or Aleve or any other NSAIDs. I have given you a take home pack of tramadol. This can be constipating and sedating. I have also given you some cyclobenzaprine, which is a muscle relaxer. Monitor for incontinence of bowel, incontinence of bladder or groin numbness. These are signs of a spinal cord injury. Please come back to the emergency department if you have any of this or any acute concerns. Please follow up with primary care provider. Prescriptions: New cyclobenzaprine 10 mg tablet 10 mg PO TID PRN (Reason: muscle spasm) Qty: 30 RF: 0 ketorolac 10 mg tablet 10 mg PO TID PRN (Reason: pain) Qty: 20 RF: 0 No Action azithromycin 250 mg tablet See Rx Instructions .ROUTE .COMPLEX Qty: 6 RF: 0 azithromycin 250 mg tablet RF: 0
[2019-05-28] MEDS: CYCLOBENZAPRINE 10 MG PREPACK 1 BOTTLE MISC (21:16)
[2019-05-28] MEDS: TRAMADOL 50 MG PREPACK 1 BOTTLE MISC (21:16)
[2019-05-28 21:24] VITALS: BP 131/67; PULSE 59; RESP 18; TEMP 36.6; O2SAT 98
== END 2019-05-28 21:26 | disposition home or self-care (01) ==
PROVIDERS: Emergency Provider Nurse Practitioner Family
DX: S39.012A Strain of muscle, fascia and tendon of lower back, initial encounter (principal); M54.6 Pain in thoracic spine; X50.0XXA Overexertion from strenuous movement or load, initial encounter
CPT/HCPCS: 72070; 72100; 81003; 96372; 99283; 99284; J1885

== ENCOUNTER 2020-01-21 14:07 | Emergency (ER) | payer OTHER, SELFPAY ==
[2020-01-21 14:13] VITALS: BP 130/62; PULSE 87; RESP 16; TEMP 36.6; O2SAT 99
[2020-01-21] MEDS: LIDO 1%/SOD BICARB 8.4% (10ML) 10 ML SYRINGE INJ (14:28)
--- NOTE | 2020-01-21 14:40 | ED_ITS ---
HPI - Wound/Laceration <CLARISA Hadley - Last Filed: 01/21/20 22:03> General Chief Complaint: Wound/Laceration Stated Complaint: right knee cut today Time Seen by Provider: 01/21/20 14:10 Source: patient Mode of arrival: Ambulatory Limitations: no limitations History of Present Illness HPI narrative: 29-year-old male presents to the emergency department complaining of a laceration on his right knee. He states he was trying to remove a stump and was using an Axe, axis slipped and part of it hit his knee causing a laceration. He states the laceration is gaping and is worried that he may need sutures. Patient states he last received his Tdap vaccination in April 2019. He denies significant pain to the area, swelling, erythema, other injuries, fevers, cough, nausea, vomiting, diarrhea, or any other concerns. Related Data Home Medications Medication Instructions Recorded Confirmed azithromycin 10/07/18 Previous Rx's Medication Instructions Recorded azithromycin See Rx Instructions .ROUTE 09/22/18 .COMPLEX #6 tab cyclobenzaprine 10 mg PO TID PRN #30 tab 05/28/19 ketorolac 10 mg PO TID PRN #20 tab 05/28/19 Allergies Allergy/AdvReac Type Severity Reaction Status Date / Time Penicillins [PENICILLINS] Allergy Unknown Verified 10/07/18 22:48 Review of Systems <CLARISA Hadley - Last Filed: 01/21/20 22:03> Review of Systems Narrative: REVIEW OF SYSTEMS: GENERAL: Denies fever or chills. HENT: Denies head trauma. EYE: Denies double vision or vision loss. CARDIOVASCULAR: Denies syncope. MUSCULOSKELETAL: Denies weakness, or deformities. INTEGUMENTARY: Complains of laceration, see HPI. NEURO: Denies numbness or tingling. Patient History <CLARISA Hadley - Last Filed: 01/21/20 22:03> Medical History (Updated 01/21/20 @ 14:43 by CLARISA Hadley) No significant medical problems (Acute) Social History Smoking Status: Current every day smoker Smoking Status: Current every day smoker alcohol intake frequency: holidays/special occasions only Substance Use Type: does not use Exam <CLARISA Hadley - Last Filed: 01/21/20 22:03> Initial Vital Signs Initial Vital Signs: Vital Signs Temperature 98 F 01/21/20 14:13 Pulse Rate 87 01/21/20 14:13 Respiratory Rate 16 01/21/20 14:13 Blood Pressure 130/62 01/21/20 14:13 Pulse Oximetry 99 01/21/20 14:13 PHYSICAL EXAMINATION: GENERAL: Well groomed, alert, and cooperative. Answers questions promptly and appropriately. Vital signs noted. HENT: Normocephalic, atraumatic. RESPIRATORY: Normal respiratory rate, trachea midline, airway patent. No stridor, nasal flaring or accessory muscle use. MUSCULOSKELETAL: Normal gait and coordination. Equal tone and mass bilaterally. EXTREMITIES: CMS intact. Full range of motion of right knee against resistance. Very slight tenderness to palpation of area of laceration. No swelling, ecchymosis, or pain with palpation to the patella. SKIN: Warm, dry, soft, appropriate color for ethnicity. 2.5cm laceration to lateral aspect of left knee. Small amount of subcu/adipose tissue noted, no tendons visible. No surrounding erythema. Bleeding controlled with pressure. NEURO: Alert and Oriented X 3. Good coordination. PSYCH: Appropriate affect and mood. <Krystina Joseph MD - Last Filed: 01/22/20 07:00> Initial Vital Signs Initial Vital Signs: Vital Signs Temperature 98 F 01/21/20 14:13 Pulse Rate 87 01/21/20 14:13 Respiratory Rate 16 01/21/20 14:13 Blood Pressure 130/62 01/21/20 14:13 Pulse Oximetry 99 01/21/20 14:13 Procedures <CLARISA Hadley - Last Filed: 01/21/20 22:03> Laceration Repair Laceration 1: Site: lower extremity Side (If applicable): right Size (cm): 2.5 Description: linear Depth: simple, single layer Local Anesthetic: lidocaine 1% and with bicarb Amount of anesthesia used (mL): 3 Pre-repair: wound explored and irrigated extensively Skin layer closed with: nylon Size (cm): 3-0 and 4-0 Number of sutures: 2 Technique: simple, interrupted Course <CLARISA Hadley - Last Filed: 01/21/20 22:03> Orders Ordered: Discontinued Medications Lidocaine/Sodium Bicarbonate (Buffered Lidocaine 10 Ml Syr) 10 ml INJ NOW ONE Stop: 01/21/20 14:23 Last Admin: 01/21/20 14:28 Dose: 10 ml Documented by: MARINA Vital Signs Vital signs: Vital Signs - 8 hr 01/21/20 14:13 Temperature 98 F Pulse Rate 87 Respiratory Rate 16 Blood Pressure 130/62 Pulse Oximetry 99 <Krystina Joseph MD - Last Filed: 01/22/20 07:00> Orders Ordered: Discontinued Medications Lidocaine/Sodium Bicarbonate (Buffered Lidocaine 10 Ml Syr) 10 ml INJ NOW ONE Stop: 01/21/20 14:23 Last Admin: 01/21/20 14:28 Dose: 10 ml Documented by: MARINA Vital Signs Vital signs: Vital Signs - 8 hr 01/21/20 14:13 Temperature 98 F Pulse Rate 87 Respiratory Rate 16 Blood Pressure 130/62 Pulse Oximetry 99 MDM - Wound/Laceration <CLARISA Hadley - Last Filed: 01/21/20 22:03> Medical Records Attestation: I reviewed the patient's medical records. Lab Data Attestation: I reviewed the patient's lab results. MDM Narrative Medical decision making narrative: 29yo male presenting to the emergency department for a simple laceration without concern for foreign body. No significant pain, swelling, ecchymosis or tenderness which decreases my suspicion for a underlying fracture. Patient was able to ambulate without significant pain. Laceration was irrigated extensively with approximately 200 mL of normal saline. Laceration was repaired with 2 sutures, dressing was ap plied. Patient was counseled extensively to watch for signs of infection. Return precautions given for new or worsening symptoms. No concern for tendon involvement due to superficial nature of laceration and full range of motion of knee against resistance. Discharge Plan Departure Patient Disposition: Home Clinical Impression: Laceration Discharge Date/Time: 01/21/20 14:50 Instructions: DI for Laceration Repair Activity Restrictions/Additional Instructions: Thank you for entrusting me with your care today. As discussed, 2 sutures were placed in your laceration. The should be removed in 7-10 days. Please leave the dressing in place for the next 24 hours. After that time frame, you may remove the dressing and gently wash the area. You can leave the area open to air unless you are engaging in any activities that would cause debris to enter your wound (then cover the wound.). Do not soak your wound in any water such as a landaverde, and during hot tub, or even a bath (showers are okay). You may apply a Neosporin or bacitracin to the area 2 times a day. Watch for signs of infect ion such as increased redness, pus, significant pain, swelling, or fevers. If these symptoms occur, please be seen immediately. Return emergency department for any new or worsening symptoms. Prescriptions: No Action azithromycin 250 mg tablet See Rx Instructions .ROUTE .COMPLEX Qty: 6 RF: 0 azithromycin 250 mg tablet RF: 0 cyclobenzaprine 10 mg tablet 10 mg PO TID PRN (Reason: muscle spasm) Qty: 30 RF: 0 ketorolac 10 mg tablet 10 mg PO TID PRN (Reason: pain) Qty: 20 RF: 0
== END 2020-01-21 14:50 | disposition home or self-care (01) ==
PROVIDERS: Emergency Provider Nurse Practitioner
DX: S81.011A Laceration without foreign body, right knee, initial encounter (principal); W27.8XXA Contact with other nonpowered hand tool, initial encounter
CPT/HCPCS: 12001; 99283

== ENCOUNTER 2024-06-06 19:55 | Emergency (ER) | payer OTHER, SELFPAY ==
[2024-06-06 19:59] VITALS: BP 151/78; PULSE 73; RESP 18; TEMP 36.6; O2SAT 100; BMI 34.8
--- NOTE | 2024-06-06 20:31 | ED.RECABL ---
HPI - Recheck/Abnormal Lab/Rx General Chief Complaint: Recheck/Abnormal Lab/Rx Stated Complaint: swelling joints t-14 Time Seen by Provider: 06/06/24 19:57 Source: patient Mode of arrival: Ambulatory History of Present Illness HPI narrative: 33-year-old male with history of bipolar 1 disorder on olanzapine and Depakote presents for 2 weeks of diffuse joint swelling, particularly in his ankles. Patient states that he had an incident in April where he was hospitalized for mental health and his meds were adjusted. Since then he has had weight gain. Symptoms got worse over the last 2 weeks. Patient was here on leave from [place] visiting his mom, he states that the swelling in his ankles and hands has now gotten to the point where he was difficulty putting his shoes on and he can not see his PCP until at least next week. He states that no labs have been checked since his discharge from the hospital in April Related Data Home Medications Medication Instructions Recorded Confirmed azithromycin 250 mg tablet 10/07/18 Previous Rx's Medication Instructions Recorded azithromycin 250 mg tablet See Rx Instructions PO .COMPLEX #6 09/22/18 tabs cyclobenzaprine 10 mg tablet 10 mg PO TID PRN muscle spasm #30 05/28/19 tabs ketorolac 10 mg tablet 10 mg PO TID PRN pain #20 tabs 05/28/19 furosemide 20 mg tablet 20 mg PO DAILY #7 tabs 06/06/24 Allergies Allergy/AdvReac Type Severity Reaction Status Date / Time Penicillins [PENICILLINS] Allergy Unknown Verified 10/07/18 22:48 Patient History Medical History No significant medical problems Social History Smoking Status: Current every day smoker Smoking Status: Current every day smoker alcohol intake frequency: holidays/special occasions only Substance Use Type: does not use Exam Initial Vital Signs Initial Vital Signs: Vital Signs Temperature 97.9 F 06/06/24 19:59 Pulse Rate 73 06/06/24 19:59 Respiratory Rate 18 06/06/24 19:59 Blood Pressure 151/78 H 06/06/24 19:59 Pulse Oximetry 100 06/06/24 19:59 Oxygen Delivery Method Room Air 06/06/24 19:59 Const: Awake, alert, no acute distress, nontoxic appearing Cardiac: regular rate, regular rhythm RESP: unlabored, clear bilaterally, no wheezing MSK: full range of motion, pulses equal, 3+ edema bilateral ankles/feet Skin: Warm, Dry, intact, no rashes Neuro: AO x3, CN II-XII grossly intact, moves all extremities Course Orders Ordered: ED Orders 06/06/24 20:27 CBC Auto Diff [Complete Blood Count AUTO DIFF] Stat CMP [Comprehensive Metabolic Panel] Stat CRP [C-Reactive Protein Quant] Stat Erythrocyte Sedimentation Rate Stat MAG [Magnesium] Stat TSH [Thyroid Stimulating Hormone] Stat Discontinued Medications Furosemide (Furosemide 40 Mg Tablet) 40 mg PO NOW ONE Stop: 06/06/24 22:16 Last Admin: 06/06/24 22:23 Dose: 40 mg Documented By: BATOOL Vital Signs Vital signs: Vital Signs - 8 hr 06/06/24 22:31 Pulse Rate 72 Respiratory Rate 20 Blood Pressure 152/80 H Pulse Oximetry 97 Oxygen Delivery Method Room Air MDM - Recheck/Abnormal Lab/Rx Lab Data 06/06/24 20:27 06/06/24 20:27 Labs: Lab Results 06/06/24 Range/Units 20:27 WBC 7.1 (4.5-11.0) X10^3/uL RBC 4.43 L (4.5-5.9) X10^6/uL Hgb 13.1 L (13.5-17.5) g/dL Hct 38.1 L (41-53) % MCV 86.2 (80-100) fL MCH 29.5 (26-34) PG MCHC 34.3 (30-36) % RDW 14.0 (11.6-14.8) % Plt Count 176 (150-400) X10^3/uL Neut % (Auto) 59.5 (50-75) % Lymph % (Auto) 22.6 L (25-40) % [place] % (Auto) 13.5 (3-14) % Eos % (Auto) 4.2 H (2-4) % Baso % (Auto) 0.2 (0-2) % Neut # (Auto) 4200 (0503-1856) /uL Lymph # (Auto) 1600 (1757-2965) /uL [place] # (Auto) 1000 H (0-900) /uL Eos # (Auto) 300 (0-450) /uL Baso # (Auto) 0 (0-100) /uL ESR 1 (0-15) MM/HR Sodium 139 (137-145) mmol/L Potassium 4.3 (3.4-5.1) mmol/L Chloride 106 (98-107) mmol/L Carbon Dioxide 23 (22-32) mmol/L BUN 16 (9-20) mg/dL Creatinine 1.16 (0.66-1.25) mg/dL Estimated GFR > 60 (>60) mL/min BUN/Creatinine Ratio 13.8 (6-22) Glucose 74 (70-100) mg/dL Calcium 9.5 (8.4-10.2) mg/dL Magnesium 2.0 (1.6-2.3) mg/dL Total Bilirubin 0.5 (0.2-1.3) mg/dL AST 43 (17-59) IU/L ALT 66 H (<50) IU/L Alkaline Phosphatase 41 (38-126) U/L C-Reactive Protein < 0.5 (<1.0) mg/dL Total Protein 6.4 (6.3-8.2) g/dL Albumin 4.1 (3.5-5.0) g/dL Globulin 2.3 (1.7-4.1) g/dL Albumin/Globulin Ratio 1.8 (1.0-2.8) TSH 2.34 (0.47-4.68) uIU/mL Urine Dip Bedside Urine Glucose Negative Bedside Urine Bilirubin - Negative Bedside Urine Ketone - Negative Urine Specific [place] 1.010 Bedside Urine Occult Blood - Negative Bedside Urine pH 8.0 Bedside Urine Protein - Negative Bedside Urine Urobilinogen - Negative Bedside Urine Nitrite - Negative Bedside Urine Leukocytes - Negative Esterase MDM Narrative Medical decision making narrative: Several weeks of swelling in all joints, particularly ankles. Patient is concerned that he may be experiencing a side effect of his medications. Patient's listed medications include prazosin, hydroxyzine, sildenafil, magnesium, olanzapine, and Depakote. Possible medication side effect. Depakote level not able to be obtained in-house here, confirmed with lab. Laboratory work reviewed, no significant abnormalities identified. Electrolytes within normal limits, kidney function normal, thyroid levels normal. Patient given a copy of his laboratory results to bring back to his primary care doctor when he returns to [place]. With recent history of mental health exacerbation do not currently feel comfortable adjusting any psychiatric medication doses at this time. Patient given a short course of furosemide to see if this helps his edema. Patient counseled to wear compression stockings and elevate his extremities at rest to also help his swelling. Discharge Plan Departure Patient Disposition: Home Clinical Impression: Swelling Instructions: DI for Peripheral Edema -- Bilateral Activity Restrictions/Additional Instructions: Your laboratory work here today was normal. Your kidney, thyroid, liver, blood counts, and inflammatory markers were all normal. I do not know the exact cause of your swelling. Close follow up with your primary doctor team is needed. You may try the water pill to see if this helps your swelling. Wear compression stockings and elevate your legs when at rest to help decrease swelling. Prescriptions: New furosemide 20 mg tablet 20 mg PO DAILY Qty: 7 0RF No Action azithromycin 250 mg tablet See Rx Instructions .ROUTE .COMPLEX Qty: 6 0RF Rx Instructions: take 500 mg today (day 1), then 250 mg for 4 days (days 2-5) azithromycin 250 mg tablet Patient Comments: take 2 tablets by mouth today then take 1 tablet DAILY FOR 4 DAYS cyclobenzaprine 10 mg tablet 10 mg PO TID PRN (Reason: muscle spasm) Qty: 30 0RF ketorolac 10 mg tablet 10 mg PO TID PRN (Reason: pain) Qty: 20 0RF Stand Alone Forms: Patient Portal/API
[2024-06-06 20:39] LABS: Add Manual Diff / Slide Review NO; Basophils Absolute Auto 0 /uL (0-100); Basophils Percent Auto 0.2 % (0-2); Eosinophils Absolute Auto 300 /uL (0-450); Eosinophils Percent Auto 4.2 % (2-4); Hematocrit 38.1 % (41-53); Hemoglobin 13.1 g/dL (13.5-17.5); Lymphocytes Absolute Auto 1600 /uL (1100-4500); Lymphocytes Percent Auto 22.6 % (25-40); Mean Corpuscular HGB Conc 34.3 % (30-36); Mean Corpuscular Hemoglobin 29.5 PG (26-34); Mean Corpuscular Volume 86.2 fL (80-100); Monocytes Absolute Auto 1000 /uL (0-900); Monocytes Percent Auto 13.5 % (3-14); Neutrophils Absolute Auto 4200 /uL (1500-7000); Neutrophils Percent Auto 59.5 % (50-75); Platelet Count 176 X10^3/uL (150-400); Red Blood Cell Count 4.43 X10^6/uL (4.5-5.9); White Blood Cell Count 7.1 X10^3/uL (4.5-11.0)
[2024-06-06 20:48] LABS: Alanine Aminotransferase 66 IU/L (<50); Albumin 4.1 g/dL (3.5-5.0); Albumin Globulin Ratio 1.8 (1.0-2.8); Alkaline Phosphatase 41 U/L (38-126); Aspartate Aminotransferase 43 IU/L (17-59); BUN Creatinine Ratio 13.8 (6-22); Bilirubin Total 0.5 mg/dL (0.2-1.3); Blood Urea Nitrogen 16 mg/dL (9-20); C-Reactive Protein Quant < 0.5 mg/dL (<1.0); Calcium 9.5 mg/dL (8.4-10.2); Carbon Dioxide 23 mmol/L (22-32); Chloride 106 mmol/L (98-107); Estimated Glomerular Filt Rate > 60 mL/min (>60); Globulin 2.3 g/dL (1.7-4.1); Glucose 74 mg/dL (70-100); HEMOLYSIS < 15 (0-50); Potassium 4.3 mmol/L (3.4-5.1); Sodium 139 mmol/L (137-145); Total Protein 6.4 g/dL (6.3-8.2)
[2024-06-06 21:07] LABS: Erythrocyte Sedimentation Rate 1 MM/HR (0-15)
[2024-06-06 22:05] LABS: Thyroid Stimulating Hormone 2.34 uIU/mL (0.47-4.68)
[2024-06-06] MEDS: FUROSEMIDE 40 MG TABLET PO (22:23)
[2024-06-06 22:31] VITALS: BP 152/80; PULSE 72; RESP 20; O2SAT 97
== END 2024-06-06 22:32 | disposition home or self-care (01) ==
PROVIDERS: Emergency Provider Emergency Medicine
DX: M25.472 Effusion, left ankle (principal); M25.471 Effusion, right ankle
CPT/HCPCS: 36415; 80053; 81003; 83735; 84443; 85025; 85651; 86140; 99283

== ENCOUNTER → 2025-02-16 11:01 | Outpatient (CLI) | payer OTHER, SELFPAY ==
--- NOTE | 2025-02-16 11:03 | DI.ECHO.S_ITS ---
[facility] +---------+ [facility] : : [address] : : [place] : : [id number] : : Phone: [phone] Echocardiogram Report + + :Name: LOPEZ HANDY Study Date: 02/16/2025 Height: 72 in : :[facility] ReadingLocation: Weight: 215 lb : : Gender: Male BSA: 2.2 m2 : :: 1990 Age: 34 yrs BP: 118/73 mmHg: :Reason For Study: HISTORY AND PHYSICAL EVALUATION : :Ordering Physician: ELGIN, : :INDIA SMITH Performed By: Melissa Solomon : :Referring: INDIA EISENBERG PA-C : + + Interpretation Summary The ejection fraction is estimated to be 60-65%. Diastolic parameters suggest probable normal left ventricular diastolic function and normal filling pressures. The right ventricle is normal in size and function. No valvular abnormalities. Pulmonary artery pressures cannot be estimated because of the lack of a measurable TR jet velocity but the IVC suggests a CVP of around 3 mmHg. Procedure: A two-dimensional transthoracic echocardiogram with color flow and Doppler was performed. The study quality was technically adequate. There is no prior echocardiogram noted for this patient. The patient was in sinus rhythm with heart rates between 60-80 bpm during the exam. Left Ventricle: The left ventricle is normal in size and wall thickness. The ejection fraction is estimated to be 60-65%. Diastolic parameters suggest probable normal left ventricular diastolic function and normal filling pressures. Right Ventricle: The right ventricle is normal in size and function. Atria: The left atrial size is normal. Right atrial size is normal. There is no Doppler evidence for an interatrial shunt. Mitral Valve: The mitral valve leaflets appear to open well. There is no mitral regurgitation noted. Aortic Valve: The aortic valve is trileaflet. The aortic valve opens well. There is no aortic valve stenosis. No aortic regurgitation is present. Tricuspid Valve: The tricuspid valve leaflets are thin and pliable. There is trace tricuspid regurgitation. Pulmonary artery pressures cannot be estimated because of the lack of a measurable TR jet velocity but the IVC suggests a CVP of around 3 mmHg. Pulmonic Valve: The pulmonic valve leaflets are thin and pliable; valve motion is normal. There is trace pulmonic regurgitation. Great Vessels: The aortic root is normal size. The ascending aorta is normal in size. The IVC is of normal diameter and collapses greater than 50% with a sniff. This suggests a low right atrial pressure of 3 mm Hg. Pericardium/ Pleura There is no pericardial effusion. There is no pleural effusion. MMode/2D Measurements & Calculations LVIDd: 4.5 cm LVOT diam: 2.2 cm LVIDs: 3.0 cm Ao root diam: 3.5 cm FS: 33.9 % asc Aorta Diam: 3.1 cm IVSd: 0.86 cm Ao Arch Diam (Prox Trans): 2.7 cm LVPWd: 0.83 cm LV galdamez. diameter/BSA (cm/m^2): 2.0 LV sys. diameter/BSA (cm/m^2): 1.4 LA A2 area: 15.9 cm2 RA long axis: 4.7 cm LA A4 area: 17.5 cm2 RA area: 17.5 cm2 LA length (vol): 5.1 cm RA vol: 54.8 ml LA vol: 46.6 ml RA : 24.9 ml/m2 LA vol index: 21.2 ml/m2 IVC diam: 1.4 cm RVD1 (basal): 3.5 cm RVD2 (mid): 2.6 cm TAPSE: 2.2 cm Doppler Measurements & Calculations Ao V2 max: 107.3 cm/sec LVOT Max Delon: 97.0 cm/sec Ao V2 mean: 71.3 cm/sec LV V1 max P.8 mmHg Ao max P.6 mmHg LV V1 VTI: 18.8 cm Ao mean P.3 mmHg KENJI(I,D): 3.4 cm2 Ao V2 VTI: 21.4 cm KENJI(V,D): 3.5 cm2 sev ratio: 0.88 KENIJ indexed to BSA (cm^2/m^2): 1.6 MV E max delon: 82.0 cm/sec PA V2 max: 113.8 cm/sec MV A max delon: 52.9 cm/sec PA V2 mean: 75.0 cm/sec MV E/A: 1.6 PA mean P.5 mmHg Med Peak E' Delon: 12.4 cm/sec PA pr(Accel): 34.5 mmHg E/E' med: 6.6 Lat Peak E' Delon: 15.8 cm/sec E/E' lat: 5.2 E/e' average: 5.9 MV dec time: 0.19 sec SV(LVOT): 73.8 ml Reading Physician:02:11 PM
== END ==
LOC: ECHO 11:02
PROVIDERS: Referring Provider Physician Assistant; Visit Provider Physician Assistant
DX: Z00.00 Encounter for general adult medical examination without abnormal findings (principal)
CPT/HCPCS: 93306